=== PATIENT | female | born 1990 | race Caucasian/White ===

== ENCOUNTER 2019-01-08 05:35 | Emergency (ER) | payer OTHER, SELFPAY ==
[2019-01-08 05:35] VITALS: BP 142/91; PULSE 73; RESP 16; TEMP 36.5; O2SAT 96; BMI 29.7
[2019-01-08] MEDS: Ondansetron 4 MG/2 ML Vial IV (05:53)
[2019-01-08] MEDS: Meclizine HCl 25 MG Tablet PO (05:53)
[2019-01-08 06:11] LABS: Bedside Glucose 101 mg/dL (70-110)
[2019-01-08 06:16] LABS: Internal QC Validated? YES +Cl - CLEAR BKGD; Pregnancy, Urine Negative Negative
--- NOTE | 2019-01-08 06:29 | ED.DCSUM_ITS ---
- ER Visit Summary Date of Service: 01/08/19 Chief Complaint: Dizziness and nausea History of Present Illness: The patient is a 28 F who reports nausea and dry heaving since last night. She has not actually had any vomiting. She denies diarrhea. She denies any pain. She also complains of feeling dizzy. She describes this as a sensation of the room spinning. She denies recent URI-like illness. No otalgia. No tinnitus. Physical Examination: Afebrile vitals are normal No distress resting comfortably Heart regular rate and rhythm Lungs are clear Abdomen soft nontender Alert No focal or lateralizing neurological deficits no ataxia Test Results: GGT normal. negative. Emergency Department Course and Treatment: Patient was given Zofran and meclizine here. On reevaluation her symptoms are improved but not resolved. She was given prescriptions for Zofran and meclizine. I suspect her symptoms are related to vertigo. Given her benign appearance here benign exam I do feel she can be discharged to follow-up as an outpatient as needed. Treatment Plan: [] Disposition: Discharge Impression: Vertigo This note was generated with [employer] dictation software. It may contain incorrect words, spelling, and punctuation that were not noted in review of the chart prior to signing ED Disposition - Plan for ED Patient: Referrals: Jose Desai MD [Primary Care Provider] -
--- NOTE | 2019-01-08 06:29 | ED.DEP ---
ED Disposition - Plan for ED Patient: Instructions: ED Vertigo Unspecified Prescriptions: Ondansetron [Zofran Odt] 4 mg PO Q8H PRN PRN #10 tab PRN Reason: Nausea Meclizine HCl [Antivert] 25 mg PO 4X/DAY PRN PRN #20 tab PRN Reason: Dizziness Referrals: Jose Desai MD [Primary Care Provider] -
[2019-01-08 06:53] VITALS: BP 107/54; PULSE 72; RESP 16; O2SAT 100
--- NOTE | 2019-01-08 06:53 | ED.RN ---
THIS NURSE REVIEWED D/C INSTRUCTIONS WITH PT. PT VERBALIZED UNDERSTANDING OF INSTRUCTIONS. IV D/C. IV CATHETER INTACT. PT TOLERATED WELL. PT DENIES FURTHER NEEDS OR QUESTIONS AT THIS TIME.
== END 2019-01-08 06:54 | disposition home or self-care (01) ==
LOC: ED 05:54
PROVIDERS: Emergency Provider Emergency Medicine
DX: R42 Dizziness and giddiness (principal); R11.0 Nausea
CPT/HCPCS: 81025; 82962; 96374; 99283; A4216; J2405

== ENCOUNTER 2019-02-26 09:58 | Emergency (ER) | payer OTHER, SELFPAY ==
[2019-02-26 09:59] VITALS: BP 132/82; PULSE 94; RESP 13; TEMP 36.1; O2SAT 98; BMI 29.6
--- NOTE | 2019-02-26 10:19 | ED.DCSUM_ITS ---
- ER Visit Summary Date of Service: 02/26/19 Chief Complaint: Abdominal pain and diarrhea History of Present Illness: The patient is a 28 F who presents with abdominal pain diarrhea that began last night after eating dinner. Patient states the pain waxes and wanes. Patient states the pain is over the lower abdomen. Patient describes the pain is sharp and cramping. Patient admits to some nausea but denies any vomiting. She states she has been having diarrhea which is watery. Patient states today she noted some blood in her stools. Patient denies any dysuria. Patient states she is currently on her menstrual cycle. Physical Examination: Vital signs are stable. Patient is afebrile. Patient is in no acute distress. Oromucosa is pink and moist. Neck is supple. Trachea is midline. There is no JVD noted. Heart was regular rate and rhythm. Lungs are clear and equal bilateral. Abdomen is soft. There is diffuse tenderness. There is no rebound or guarding noted. Rectal exam showed good sphincter tone. There was some blood in the perirectal area due to the patient's vaginal bleeding. There is brown stool. There are no masses palpated. Cranial nerves II through XII are intact. There are no focal motor or sensory deficits noted. Test Results: CBC and conference of metabolic profile within normal limits. Serum hCG was negative. Urinalysis shows occult blood of 250 with 25-50 red blood cells. Stool with Hemoccult positive. However, this may be contaminated due to the blood in the perirectal area. Emergency Department Course and Treatment: Patient was given IV fluids, morphine, and Zofran. Patient felt better on reevaluation. Patient was given a prescription for Zofran. Patient was instructed to start with a liquid diet and advance to a bland and then regular diet as she starts to feel better. Patient understood and was agreeable with the plan. All questions were answered. Disposition: Discharge home Impression: 1. Abdominal pain 2. Diarrhea This note was generated with [employer] dictation software. It may contain incorrect words, spelling, and punctuation that were not noted in review of the chart prior to signing ED Disposition - Plan for ED Patient: Disposition: Home or Assisted Living Diagnosis: Abdominal pain, Diarrhea Instructions: ED Gastroenteritis Vs Food Poison Prescriptions: Ondansetron [Zofran Odt] 4 mg PO Q8H PRN PRN #10 tab PRN Reason: Nausea Referrals: Jose Desai MD [Primary Care Provider] - 5-7 Days
[2019-02-26] MEDS: Ondansetron 4 MG/2 ML Vial IV (10:33)
[2019-02-26] MEDS: 0.9% Normal Saline 1,000 ML 1000 ML IV (10:33)
[2019-02-26 10:45] LABS: Bacteria 0 SEEN /hpf (None Seen); Mucous, Urine 0 SEEN /hpf (<or=2+)
[2019-02-26 10:53] LABS: Absolute Lymphocyte Count 2.54 X10^3/ul (0.83-4.51); Absolute Neutrophil Count 6.9 X10^3/uL (2.0-7.7); Basophil# 0.04 X10^3/uL; Basophil% 0.4 % (0-1); Eosinophil# 0.15 X10^3/uL; Eosinophils% 1.5 % (0-5); Hematocrit 42.2 % (37-47); Hemoglobin 14.5 g/dl (12.0-15.0); Internal QC Validated? YES +Cl - CLEAR BKGD; Lymphocyte # 2.54 X10^3/ul (4.0); Lymphocyte % 24.8 % (19-41); Mean Corp Hgb Conc 34.4 g/gl (32-36); Mean Corpuscular Hgb 29.1 pg (27.0-32.0); Mean Corpuscular Volume 84.6 fL (81-99); Mean Platelet Vol. 10.2 fl (6.2-12.0); Monocyte# 0.57 X10^3/uL; Monocyte% 5.6 % (0-10); Neutrophil # 6.94 X10^3/uL (2.7-7.7); Neutrophil % 67.5 % (47-70); Platelet Count 324 K/mm3 (150-450); Pregnancy, Serum, hCG Quali. NEGATIVE Negative; RBC Distribution Width CV 12.5 % (11.6-14.6); RBC Distribution Width SD 37.6 fl (35.1-43.9); Red Blood Count 4.99 M/mm3 (4.2-5.4); White Blood Count 10.3 K/mm3 (4.4-11.0)
[2019-02-26 10:53] LABS: Color, Urine Amber (Yellow); Glucose, Dipstick Normal (Normal); Ketone-Dipstick Negative (Negative); Leukocyte Esterase-Dipstick 25 /ul (Negative); Nitrite-Dipstick Negative (Negative); Occult Blood-Urine 250 /ul (Negative); Protein-Dipstick 15 mg/dl (Negative); Specific Gravity, Urine 1.015 (1.002-1.030); Urine Bilirubin Dipstick Negative (Negative); Urine Clarity Sl. Cloudy (Clear); Urine Urobilinogen Normal (Normal)
[2019-02-26 10:54] LABS: POSITIVE COUNT NO; POSITIVE DIFFERENTIAL NO; POSITIVE MORPHOLOGY NO
[2019-02-26 11:01] LABS: Red Blood Cells-Urine 25-50 SEEN /hpf (0-5); Squamous Epithelial Cells - UA 0-5 SEEN /hpf (5-10); White Blood Cells 0-5 SEEN /hpf (0-5)
[2019-02-26 11:02] LABS: ALB/GLOB Ratio 0.9 RATIO (0.9-2.4); AST(SGOT) 24 U/L (15-37); Alanine Aminotransfer ALT/SGPT 31 U/L (13-56); Albumin, Serum 3.8 g/dL (3.2-5.0); Alkaline Phosphatase 77 U/L (45-117); Anion Gap 3 (5-15); BUN 8 mg/dL (7-18); BUN/Creat Ratio 12.9 RATIO (10-20); Chloride 106 mmol/L (98-107); Creatinine, Serum 0.62 mg/dL (0.55-1.02); EST Glomerular Filtration Rate 120 mL/min (>60); Est Glom Filt Rate - Afr Amer 145 mL/min (>60); Globulin 4.1 g/dL (2.2-4.2); Glucose 88 mg/dL (74-106); Lipase 101 U/L (73-393); Potassium 3.8 mmol/L (3.5-5.1); Protein, Total 7.9 g/dL (6.4-8.2); Sodium Level 137 mmol/L (136-145)
[2019-02-26 12:19] VITALS: BP 119/77; PULSE 67; RESP 17; O2SAT 99
--- NOTE | 2019-02-26 12:19 | ED.RN ---
IV DC'ED, CATHETER INTACT, SMALL GAUZE DRESSING PLACED. DISCHARGE INSTRUCTIONS GIVEN TO AND REVIEWED WITH PATIENT, PATIENT DENIES QUESTIONS OR CONCERNS AND VOICES UNDERSTANDING OF DISCHARGE INSTRUCTIONS. PT AMBULATES OUT OF ROOM WITHOUT DIFFICULTY.
== END 2019-02-26 12:20 | disposition home or self-care (01) ==
PROVIDERS: Emergency Provider Emergency Medicine
DX: R10.9 Unspecified abdominal pain (principal); R19.7 Diarrhea, unspecified; R11.0 Nausea; M54.2 Cervicalgia
CPT/HCPCS: 80053; 81001; 82274; 83690; 84703; 85025; 96361; 96374; 96375; 99283; J7030; J2405

== ENCOUNTER 2020-06-05 17:25 | Outpatient (CLI) | payer OTHER, SELFPAY ==
[2020-06-05 17:46] VITALS: BP 127/65; PULSE 86; BMI 37.4
--- NOTE | 2020-06-06 22:21 | OB.TRI.PN ---
Progress Notes Date of Service: 06/05/20 Progress Note: 30 year old at 37w1d. Presented from office with deceleration auscultated via doppler. No contractions, vaginal bleeding, or leakage of fluid. O: FHT: 120, moderate variability, accels, variable deceleration TOCO: None Reactive NST A: Full term Reactive NST P: 1) D/C home 2) kick counts reviewed
== END 2020-06-05 19:15 | disposition home or self-care (01) ==
LOC: WPOUT 17:39 → OBT 17:40
PROVIDERS: Visit Provider Advanced Practice Midwife
DX: O36.8330 Maternal care for abnormalities of the fetal heart rate or rhythm, third trimester, not applicable or unspecified (principal); Z3A.37 37 weeks gestation of pregnancy
CPT/HCPCS: 59025; 59050; 99218; G0378

== ENCOUNTER → 2020-06-14 17:43 | Outpatient (CLI) | payer OTHER, SELFPAY ==
[2020-06-05 17:46] VITALS: BMI 37.4
== END ==
PROVIDERS: Referring Provider Obstetrics & Gynecology; Visit Provider Obstetrics & Gynecology
DX: Z11.59 Encounter for screening for other viral diseases (principal)
CPT/HCPCS: 87635; C9803; U0003

== ENCOUNTER 2020-06-20 07:10 | Inpatient (IN) | payer OTHER, SELFPAY ==
[2020-06-20] VITALS (71 sets, daily range): BP systolic 90–147; BP diastolic 53–95; PULSE 67–179; RESP 16; TEMP 36.2–37.3; O2SAT 80–100; BMI 38.4
[2020-06-20] MEDS: Lactated Ringers 1,000 ML 50 ML IV (07:40)
[2020-06-20] MEDS: Oxytocin 30 units/NS 500 ml 30 UNITS/500 ML IV.SOLN IV (07:55)
[2020-06-20 08:33] LABS: Absolute Lymphocyte Count 2.03 X10^3/uL (0.83-4.51); Basophil# 0.04 X10^3/uL; Basophil% 0.4 % (0-1); Eosinophil# 0.08 X10^3/uL; Eosinophils% 0.8 % (0-5); Hematocrit 35.1 % (37-47); Hemoglobin 11.9 g/dL (12.0-15.0); Lymphocyte # 2.03 X10^3/ul (4.0); Lymphocyte % 20.3 % (19-41); Mean Corp Hgb Conc 33.9 g/dL (32-36); Mean Corpuscular Hgb 30.3 pg (27.0-32.0); Mean Corpuscular Volume 89.3 fL (81-99); Mean Platelet Vol. 10.6 fl (6.2-12.0); Monocyte# 0.72 X10^3/uL; Monocyte% 7.2 % (0-10); NRBC Flagged by Analyzer 0 % (0-5); Neutrophil # 7.03 X10^3/uL (2.7-7.7); Neutrophil % 70.2 % (47-70); Platelet Count 174 K/mm3 (150-450); RBC Distribution Width CV 14.4 % (11.6-14.6); RBC Distribution Width SD 47.1 fl (35.1-43.9); Red Blood Count 3.93 M/mm3 (4.2-5.4)
[2020-06-20] MEDS: Acetaminophen 325 MG Tablet PO (09:21)
--- NOTE | 2020-06-20 13:10 | HP.PCM_ITS ---
History Date of Admission: 05/06/17 Final MELCHOR: 06/27/20 Final MELCHOR Source: LMP Gestational age: 39 Weeks and 0 Days History of this : This is a 30 year-old, G 2, P 1001, at 39 2/7 weeks gestational age with a EDC of 06/25/2020 resents for an induction of labor. Some irregular contractions over the weekend. She denies any gross vaginal bleeding or leaking of fluid. She is had good movement. has been uncomplicated to date. Has a history of one previous vaginal delivery at 40 weeks 3 days of an 8 pound 7 ounce without complications. He was induced for preeclampsia and was on magnesium with that . She has a medical history significant for heavy menses, urinary tract infections, and she has a surgical history of a tonsillectomy. Allergies No Known Allergies Allergy (Verified 06/20/20 08:25) Home Medications: Home Medications Aspirin [Aspirin, Baby] 06/05/20 Prenatabs FA 06/05/20 Prilosec Otc 06/05/20 Smoking Status: Never smoker Alcohol: None Substance Use Type: Alcohol Number of Fetus(es): 1 History Past Pregnancies: Past Pregnancies Delivery Date Name GA/ Weeks Outcome Route Wt Sex Labor Length Anesthesia Delivery Location Provider FOB Expected Infant Delivery Method: Spontaneous Vaginal Review of Systems Constitutional: Denies: Chills, Fever Eyes: Denies: Blurred vision Cardiovascular: Denies: Chest Pain Respiratory: Denies: Cough, Shortness of Breath Neurological: Denies: Blurred vision, Slurred speech Physical Exam Vitals: Vital Signs Temp Pulse BP 97.9 F 75 139/66 H 06/20/20 10:41 06/20/20 13:04 06/20/20 13:04 General: Alert, Cooperative, No apparent distress Cardiovascular: Regular rate Lungs: Normal air movement Abdomen: Soft, Non Tender, Non-Distended, Gravid, Appropriate for Gestational Age Extremities:: Other - edema 2+ Neurological: Neuro grossly intact. Negative for: Slurred Speech [employer]: Normal external genitalia Estimated gestational size: Appropriate for gestational size Presentation: Cephalic Cervix Dilation (cm): 1 Station: -3 Effacement (%): 50 Assessment/Plan This is a 30 year-old, avid 2 para 1 at 39-2/7 weeks gestation for elective induction. Risk benefits alternatives to elective induction been discussed with patient, her questions were answered to her satisfaction she desires to proceed. We will proceed with Pitocin, Daniels and artificial rupture of membranes induction of labor. Estimated weight is less than 4500 g clinically, pelvis clinically adequate to expect vaginal delivery. Procedure note: At approximately 8 AM a Daniels catheter was placed over stylette through the internal cervical loss in the usual sterile fashion and inflated to 30 cc. Placement over the internal loss was confirmed. Patient and fetus tolerated the procedure well.
[2020-06-20] MEDS: Lactated Ringers 500 ML 999 ML IV (14:20)
[2020-06-20] MEDS: fentaNYL-bupivacaine (epidural) 100 ML BAG EPIDURAL ×2 (15:16→19:56)
[2020-06-20] MEDS: Terbutaline 1 MG/ML Vial 0.25 MG SC (17:10)
--- NOTE | 2020-06-20 17:13 | PCM.PN.BLA ---
Progress Note Patient getting uncomfortable w/ contractions. Nursing checked patient and no presenting part. earlier I checked patient and felt hand over what was assessed as skull. However, now, obvious foot presentation. Brief US confirms breech. pitocin off. Terbutaline given x1. D/w her option of attempt of ECV. If unsuccessful or fetus does not tolerate will be for primary c/s. R/B/A to this reviewed, questions answered and she desires to proceed. STROKE Vital Signs/Narrative: Vital Signs Pulse BP Pulse Ox 06/20/20 17:07 67 99 06/20/20 16:57 82 131/76 H 06/20/20 16:39 78 98 06/20/20 16:34 78 139/65 H 97 06/20/20 15:45 76 129/77 H 06/20/20 15:22 81 132/73 H 06/20/20 15:20 85 97 06/20/20 15:17 79 124/63 H 06/20/20 15:15 82 97 06/20/20 15:12 132/71 H 06/20/20 15:08 93 96 06/20/20 15:07 82 127/71 H 06/20/20 15:03 77 97 06/20/20 15:02 83 140/76 H 06/20/20 14:59 70 140/75 H 06/20/20 14:58 97 06/20/20 14:53 83 98 06/20/20 14:52 83 141/95 H 06/20/20 14:48 81 141/95 H 99 06/20/20 14:43 82 99 06/20/20 14:42 88 145/93 H 80 06/20/20 14:38 84 97 06/20/20 14:37 83 135/82 H 06/20/20 14:33 81 96 06/20/20 14:32 79 147/84 H 06/20/20 14:28 84 96 06/20/20 14:27 75 136/81 H 06/20/20 14:23 80 97 06/20/20 14:22 73 132/79 H 06/20/20 14:18 70 98 06/20/20 14:17 179 H 83
--- NOTE | 2020-06-20 17:44 | PCM.PN.BLA ---
Progress Note Procedure note: Risk benefits alternatives to trial of external cephalic version versus primary section were discussed with the patient, her questions were answered to her satisfaction she desired to proceed. With the assistance of Amber Graham CNM ultrasound guidance, an external cephalic version was done. The fetus was noted to be breech with a right maternal lie and the head in the left upper quadrant of the fundus. We made 2 attempts and ultrasound confirmed that the fetus was vertex. We confirm heart tones were above 100. Then on the next attempt we were able to convert the fetus to text. While Amber Graham CNM pressure on the maternal vertex and fundus, I was able to perform artificial rupture membranes with return of moderate amount of clear fluid. The patient was found to be 5 to 6 cm, 70% effaced and after the fluid was leaked out the vertex was confirmed to be against the cervix and -3 station. Will reinitiate Pitocin. Epidural is adequate. Expectant management for vaginal delivery. Fetus and patient tolerated the procedure well. STROKE Vital Signs/Narrative: Vital Signs Temp Pulse Resp BP Pulse Ox 06/20/20 17:43 93 125/63 H 06/20/20 17:42 98 06/20/20 17:30 87 97 06/20/20 17:22 93 98 06/20/20 17:19 97.2 F L 87 16 131/76 H 98 06/20/20 17:17 87 98 06/20/20 17:12 82 98 06/20/20 17:07 67 99 06/20/20 16:57 82 131/76 H 06/20/20 16:39 78 98 06/20/20 16:34 78 139/65 H 97 06/20/20 15:45 76 129/77 H 06/20/20 15:22 81 132/73 H 06/20/20 15:20 85 97 06/20/20 15:17 79 124/63 H 06/20/20 15:15 82 97 06/20/20 15:12 132/71 H 06/20/20 15:08 93 96 06/20/20 15:07 82 127/71 H 06/20/20 15:03 77 97 06/20/20 15:02 83 140/76 H 06/20/20 14:59 70 140/75 H 06/20/20 14:58 97 06/20/20 14:53 83 98 06/20/20 14:52 83 141/95 H 06/20/20 14:48 81 141/95 H 99 06/20/20 14:43 82 99 06/20/20 14:42 88 145/93 H 80 06/20/20 14:38 84 97 06/20/20 14:37 83 135/82 H 06/20/20 14:33 81 96 06/20/20 14:32 79 147/84 H 06/20/20 14:28 84 96 06/20/20 14:27 75 136/81 H 06/20/20 14:23 80 97 06/20/20 14:22 73 132/79 H 06/20/20 14:18 70 98 06/20/20 14:17 179 H 83
[2020-06-20] MEDS: Lactated Ringers 1,000 ML 999 ML IV (18:23)
[2020-06-20] MEDS: Mag Hydrox/Al Hydrox/Simeth 30 ML UDC PO (22:12)
[2020-06-20] MEDS: Lactated Ringers 1,000 ML 200 ML IV (22:15)
[2020-06-21] VITALS (23 sets, daily range): BP systolic 117–140; BP diastolic 54–78; PULSE 74–108; RESP 14–16; TEMP 36.2–37.2; O2SAT 95–96
[2020-06-21] MEDS: Ondansetron 4 MG/2 ML Vial IV (00:09)
--- NOTE | 2020-06-21 00:58 | NURSING ---
RN removed pt catheter at this time as pt states she pushed the moreno catheter out with last delivery.
[2020-06-21] MEDS: Oxytocin 30 units/NS 500 ml 30 UNITS/500 ML IV.SOLN 334 UNITS IV (01:12)
[2020-06-21] MEDS: miSOPROStol 200 MCG Tablet 800 MCG RECTAL (01:29)
--- NOTE | 2020-06-21 01:44 | PCM.OPRPT ---
Vaginal Delivery Maternal Presentation: Elective Induction Method of Induction: Pitocin, Daniels Bulb, Amniotomy Amniotic Membrane Rupture Type: Artificial Amniotic Fluid Description: Clear Final MELCHOR: 06/27/20 Final MELCHOR Source: US <20 weeks Gestational age: 39 Weeks and 1 Days Date of Procedure: 06/21/20 Pre-Operative Diagnosis: labor Post-Operative Diagnosis: same Surgery/ Procedure Performed: Spontaneous Vaginal Delivery Type of Anesthesia: Epidural Description of Procedure: A vigorous female infant was delivered CAROLYN over a second-degree perineal laceration. The remainder the infant was delivered with maternal pushing and gentle traction only in less than 15 seconds. The Pitocin infusion was initiated for active management of the third stage. The cord was clamped and cut after 1 minute. The infant was attended to by the waiting nursing staff. The placenta was delivered spontaneously and intact. The cervix and vagina were intact. The second-degree perineal laceration was repaired with 3-0 Vicryl suture in a running standard fashion. Some mild intermittent atony that responded to fundal massage. I did explore the uterus x1. Clots were removed but no retained products. I then did a brief ultrasound which confirmed an empty uterus with a bright white endometrial stripe. Cytotec 800 mcg rectally was given. Uterus remained firm. Sponge and needle counts were correct. A vaginal sweep was completed by me. Presentation: CAROLYN Placental Delivery Description: Spontaneous Placenta Disposition: [facility] Cord Vessel Description: 3 Vessels Cord Entanglement: None Drain: - - none Estimated Blood Loss: 600 A gender: Female - Gretel (1 minute): 8 (5 minute): 9 Episiotomy Description: None Laceration: 2nd degree - perineal Medications given after delivery: IV Pitocin, - - cytotec 800 mcg rectally Complications: None
[2020-06-21] MEDS: Methylergonovine 0.2 MG/ML Ampul IM (01:57)
[2020-06-21] MEDS: Cefazolin 2 GM in 0.9% Normal Saline 100 ML IV (02:13)
[2020-06-21] MEDS: 0.9% Saline Lock 10 ML Syringe IV (03:42)
[2020-06-21] MEDS: Acetaminophen 500 MG Tablet 1000 MG PO ×3 (04:40→21:43)
[2020-06-21] MEDS: Naproxen 250 MG Tablet 500 MG PO ×2 (08:28→18:24)
[2020-06-21] MEDS: Senna/Docusate Sodium 1 Tablet PO (08:28)
[2020-06-21 10:24] LABS: Mean Corp Hgb Conc 34.3 g/dL (32-36); Mean Corpuscular Hgb 30.5 pg (27.0-32.0); Mean Corpuscular Volume 88.8 fL (81-99); Mean Platelet Vol. 10.7 fl (6.2-12.0); Platelet Count 160 K/mm3 (150-450); RBC Distribution Width CV 14.3 % (11.6-14.6); RBC Distribution Width SD 45.6 fl (35.1-43.9); Red Blood Count 3.94 M/mm3 (4.2-5.4); White Blood Count 14.8 K/mm3 (4.4-11.0)
[2020-06-21] MEDS: oxyCODONE 5 MG Tablet PO (13:12)
--- NOTE | 2020-06-21 16:22 | NURSING ---
reviewed student nurses charting that is used for educational and learning procedures.
--- NOTE | 2020-06-21 16:24 | NURSING ---
reviewed student nurse charting that is used for educational and learning purposes.
[2020-06-22 02:29] VITALS: BP 123/74; PULSE 75
[2020-06-22 02:30] VITALS: BP 123/74; PULSE 75; RESP 16; TEMP 36.6
[2020-06-22] MEDS: Naproxen 250 MG Tablet 500 MG PO (05:20)
[2020-06-22 08:26] VITALS: BP 129/62; PULSE 74; RESP 16; TEMP 36.7; O2SAT 97
[2020-06-22 08:30] VITALS: BP 129/62; PULSE 74; PULSE 76; O2SAT 97
[2020-06-22] MEDS: Acetaminophen 500 MG Tablet 1000 MG PO (08:32)
--- NOTE | 2020-06-22 08:40 | PCM.PN.OB ---
Subjective: Patient seen at bedside. infant during visit. Stated feeling good, no pain at this time. Voiding and ambulating without difficulty. Lochia is mild. Requesting discharge home today. - Physical Exam Vitals/I&O's: Vital Signs Temp Pulse Resp BP Pulse Ox 98.1 F 76 16 129/62 H 97 06/22/20 08:26 06/22/20 08:30 06/22/20 08:26 06/22/20 08:30 06/22/20 08:30 Oxygen Delivery Method Room Air Weight: 238 lb Body Mass Index (BMI) 38.4 Finger Stick Blood Glucose 101 Intake and Output for Last 24 Hours 06/20/20 06/21/20 06/22/20 23:59 23:59 23:59 Intake Total 2905.51 / 2905.51 1173.60 / 1173.60 Output Total 500 / 925 1850 / 1850 Balance 2405.51 / 1980.51 -676.40 / -676.40 General: Oriented x3, Cooperative HEENT: Atraumatic Oral: Moist Mucosa Lungs: Normal air movement Cardiovascular: Regular rate Skin: No rashes Neurological: Cranial nerves II-XII grossly intact Psych/Mental Status: Normal Affect Laboratory Results 06/21/20 10:10: WBC 14.8 H, RBC 3.94 L, Hgb 12.0, Hct 35.0 L, MCV 88.8, MCH 30.5, MCHC 34.3, RDW Std Deviation 45.6 H, RDW Coeff of Sujatha 14.3, Plt Count 160, MPV 10.7 Current Medications Acetaminophen (Tylenol) 1,000 mg PO Q8H PRN PRN PRN Reason: Pain Score 1-3/10 Last Admin: 06/22/20 08:32 Dose: 1,000 mg Documented by: Bisacodyl (Dulcolax) 10 mg RECTAL UD PRN PRN Reason: If no BM Dibucaine (Dibucaine) 1 applic TOPICAL TID PRN PRN; Protocol PRN Reason: Discomfort Hydrocortisone (Hytone) 1 applic TOPICAL TID PRN PRN; Protocol PRN Reason: Discomfort Methylergonovine Maleate (Methergine) 0.2 mg IM X1 PRN PRN Reason: Excess bleeding/uterine atony Last Admin: 09/09/20 01:57 Dose: 0.2 mg Documented by: Naproxen (Naprosyn) 500 mg PO Q8H PRN PRN PRN Reason: Pain Score 1-3/10 Last Admin: 06/22/20 05:20 Dose: 500 mg Documented by: Ondansetron HCl (Zofran) 4 mg IV Q4H PRN PRN PRN Reason: Nausea Prochlorperazine Edisylate (Compazine Iv) 10 mg IV Q6H PRN PRN PRN Reason: NAUSEA/VOMITING Senna/Docusate Sodium (Senokot-S, Gloria-Colace) 1 - 2 tablet PO DAILY PRN PRN PRN Reason: Constipation Last Admin: 06/21/20 08:28 Dose: 2 tablet Documented by: Simethicone (Mylicon) 80 mg PO PCHS PRN PRN Reason: Indigestion/Stomach pain Sodium Chloride () 5 - 15 ml IV UD PRN PRN Reason: SALINE FLUSH Last Admin: 06/21/20 03:42 Dose: 10 ml Documented by: Medical Necessity - Tobacco Use Smoking Status: Never smoker Assessment/Plan A/P PPD #1 Routine care Pain controlled Discharge home
--- NOTE | 2020-06-22 08:43 | DCINST_ITS ---
Discharge Diet: No Restrictions Discharge Activity: Return to Normal Activity Additional Instructions: If you experience any of the following, contact your healthcare provider. * Bleeding that soaks a pad every hour for 2 hours * Fever 100.4 or higher * Unrelieved incision or abdominal pain * Swelling, redness, discharge or bleeding from your incision or episiotomy site * Your incision begins to separate * Problems urinating (including inability to urinate or burning while urinating). * Visual changes * Severe headache * Flu-like symptoms * Pain or redness in one of both of your breasts * Pain, warmth, tenderness or swelling in your legs, especially the calf area * Frequent nausea and vomiting * Symptoms of depression or anxiety If you experience any of the following, call 911 or go to the nearest Emergency Room. * Chest pain * Problems breathing * Seizure activity * Partial or complete paralysis of a body part, slurred speech, weakness or drooping of the face, or a sudden inability to walk or hold your balance Allergies/Adverse Reactions: Allergies No Known Allergies Allergy (Verified 06/20/20 08:25) Medications to take at Discharge Aspirin [Aspirin, Baby] 06/05/20 Prenatabs FA 06/05/20 Prilosec Otc 06/05/20 When: 2 weeks virtual visit/ 6 weeks in office Primary Care Physician: Jose Desai MD [Primary Care Provider] - Test Results: Test results from this visit will be discussed in further detail at your follow- up appointment, if applicable.
--- NOTE | 2020-06-22 08:43 | PCM.DCVAG ---
Discharge Diet: No Restrictions Discharge Activity: Return to Normal Activity Additional Instructions: If you experience any of the following, contact your healthcare provider. Bleeding that soaks a pad every hour for 2 hours Fever 100.4 or higher Unrelieved incision or abdominal pain Swelling, redness, discharge or bleeding from your incision or episiotomy site Your incision begins to separate Problems urinating (including inability to urinate or burning while urinating). Visual changes Severe headache Flu-like symptoms Pain or redness in one of both of your breasts Pain, warmth, tenderness or swelling in your legs, especially the calf area Frequent nausea and vomiting Symptoms of depression or anxiety If you experience any of the following, call 911 or go to the nearest Emergency Room. Chest pain Problems breathing Seizure activity Partial or complete paralysis of a body part, slurred speech, weakness or drooping of the face, or a sudden inability to walk or hold your balance Allergies/Adverse Reactions: Allergies No Known Allergies Allergy (Verified 06/20/20 08:25) Medications to take at Discharge Aspirin [Aspirin, Baby] 06/05/20 Prenatabs FA 06/05/20 Prilosec Otc 06/05/20 When: 2 weeks virtual visit/ 6 weeks in office Primary Care Physician: Jose Desai MD [Primary Care Provider] - Test Results: Test results from this visit will be discussed in further detail at your follow-up appointment, if applicable.
== END 2020-06-22 11:25 | disposition home or self-care (01) | DRG 807 ==
PROVIDERS: Admitting Provider Obstetrics & Gynecology; Referring Provider Obstetrics & Gynecology; Visit Provider Obstetrics & Gynecology
DX: O75.9 Complication of labor and delivery, unspecified (principal); Z37.0 Single live birth; O70.1 Second degree perineal laceration during delivery; Z3A.39 39 weeks gestation of pregnancy
CPT/HCPCS: 59025; 59050; 85025; 85027; 86850; 86900; 86901; 99218; J7120; A4216; G0378; J2405

== ENCOUNTER 2020-06-26 09:49 | Outpatient (CLI) | payer OTHER, SELFPAY ==
[2020-06-20 07:50] VITALS: BMI 38.4
== END 2020-06-26 10:24 | disposition home or self-care (01) ==
LOC: TELEHEALTH 06-27 11:36
PROVIDERS: Referring Provider Registered Nurse Lactation Consultant; Visit Provider Registered Nurse Lactation Consultant
DX: R63.3 Feeding difficulties (principal)
CPT/HCPCS: 96158; 96159

== ENCOUNTER → 2020-07-19 20:15 | Outpatient (CLI) | payer OTHER, SELFPAY ==
[2020-06-20 07:50] VITALS: BMI 38.4
== END ==
PROVIDERS: Referring Provider Obstetrics & Gynecology; Visit Provider Obstetrics & Gynecology
DX: R63.3 Feeding difficulties (principal)
CPT/HCPCS: 96158

== ENCOUNTER → 2023-04-14 | Outpatient (CLI) | payer OTHER, SELFPAY ==
[2023-04-14 15:12] LABS: Absolute Lymphocyte Count 2.91 X10^3/uL (0.83-4.51); Absolute Neutrophil Count 5.5 X10^3/uL (2.0-7.7); Basophil# 0.06 X10^3/uL; Basophil% 0.7 % (0-1); Eosinophil# 0.11 X10^3/uL; Eosinophils% 1.2 % (0-5); Hematocrit 39.7 % (37-47); Hemoglobin 13.2 g/dL (12.0-15.0); Lymphocyte # 2.91 X10^3/ul (0.83-4.51); Mean Corp Hgb Conc 33.2 g/dL (32-36); Mean Corpuscular Volume 87.3 fL (81-99); Mean Platelet Vol. 10.9 fl (6.2-12.0); Monocyte# 0.46 X10^3/uL; Monocyte% 5.1 % (0-10); NRBC Flagged by Analyzer 0 % (0-5); Neutrophil # 5.52 X10^3/uL (2.7-7.7); Neutrophil % 60.8 % (47-70); Platelet Count 335 K/mm3 (150-450); RBC Distribution Width CV 12.2 % (11.6-14.6); RBC Distribution Width SD 38.9 fl (35.1-43.9); Red Blood Count 4.55 M/mm3 (4.2-5.4); White Blood Count 9.1 K/mm3 (4.4-11.0)
[2023-04-14 16:03] LABS: ALB/GLOB Ratio 0.9 RATIO (0.9-2.4); AST(SGOT) 29 U/L (15-37); Alanine Aminotransfer ALT/SGPT 36 U/L (13-56); Albumin, Serum 3.5 g/dL (3.2-5.0); Alkaline Phosphatase 64 U/L (45-117); Anion Gap 6 (5-15); BUN 8 mg/dL (7-18); BUN/Creat Ratio 12.9 RATIO (10-20); Chloride 108 mmol/L (98-107); Creatinine, Serum 0.62 mg/dL (0.55-1.02); EST Glomerular Filtration Rate 117 mL/min (>60); Est Glom Filt Rate - Afr Amer 141 mL/min (>60); Globulin 4.1 g/dL (2.2-4.2); Glucose 73 mg/dL (74-106); Potassium 3.7 mmol/L (3.5-5.1); Protein, Total 7.6 g/dL (6.4-8.2); Sodium Level 135 mmol/L (136-145)
[2023-04-18 21:07] LABS: Almond <0.10 kU/L (Class 0); Barley, Whole Grain <0.10 kU/L (Class 0); Brazil Nut <0.10 kU/L (Class 0); Cashew <0.10 kU/L (Class 0); Crab <0.10 kU/L (Class 0); Egg, White <0.10 kU/L (Class 0); Egg, Yolk <0.10 kU/L (Class 0); Garlic <0.10 kU/L (Class 0); Gluten <0.10 kU/L (Class 0); Hazelnut/Filbert <0.10 kU/L (Class 0); Onion <0.10 kU/L (Class 0); Pecan <0.10 kU/L (Class 0); Rice <0.10 kU/L (Class 0); Soybean <0.10 kU/L (Class 0); Strawberry <0.10 kU/L (Class 0); Tomato <0.10 kU/L (Class 0); Wheat <0.10 kU/L (Class 0); Yeast <0.10 kU/L (Class 0)
== END | disposition home or self-care (01) ==
PROVIDERS: PCP Family Medicine; Referring Provider Otolaryngology Otolaryngology/Facial Plastic Surgery; Visit Provider Otolaryngology Otolaryngology/Facial Plastic Surgery
DX: Z13.1 Encounter for screening for diabetes mellitus (principal); T78.40XA Allergy, unspecified, initial encounter
CPT/HCPCS: 36415; 80053; 85025; 86003

== ENCOUNTER 2023-05-01 12:39 | Outpatient (CLI) | payer OTHER, SELFPAY ==
[2023-05-01 15:53] LABS: Absolute Lymphocyte Count 2.61 X10^3/uL (0.83-4.51); Basophil# 0.06 X10^3/uL; Basophil% 0.7 % (0-1); Eosinophil# 0.11 X10^3/uL; Eosinophils% 1.3 % (0-5); Hematocrit 41.4 % (37-47); Hemoglobin 14.1 g/dL (12.0-15.0); Lymphocyte # 2.61 X10^3/ul (0.83-4.51); Lymphocyte % 31.6 % (19-41); Mean Corp Hgb Conc 34.1 g/dL (32-36); Mean Corpuscular Hgb 29.1 pg (27.0-32.0); Mean Corpuscular Volume 85.4 fL (81-99); Mean Platelet Vol. 10.7 fl (6.2-12.0); Monocyte# 0.46 X10^3/uL; Monocyte% 5.6 % (0-10); NRBC Flagged by Analyzer 0 % (0-5); Neutrophil # 4.99 X10^3/uL (2.7-7.7); Neutrophil % 60.4 % (47-70); Platelet Count 369 K/mm3 (150-450); RBC Distribution Width CV 12.2 % (11.6-14.6); RBC Distribution Width SD 37.8 fl (35.1-43.9); Red Blood Count 4.85 M/mm3 (4.2-5.4); White Blood Count 8.3 K/mm3 (4.4-11.0)
[2023-05-01 16:31] LABS: AST(SGOT) 22 U/L (15-37); Alanine Aminotransfer ALT/SGPT 34 U/L (13-56); Albumin, Serum 3.8 g/dL (3.2-5.0); Alkaline Phosphatase 72 U/L (45-117); Anion Gap 9 (5-15); BUN 9 mg/dL (7-18); BUN/Creat Ratio 14.9 RATIO (10-20); Calcium,Total 9.2 mg/dL (8.5-10.1); Chloride 105 mmol/L (98-107); Creatinine, Serum 0.61 mg/dL (0.55-1.02); EST Glomerular Filtration Rate 120 mL/min (>60); Est Glom Filt Rate - Afr Amer 146 mL/min (>60); Glucose 82 mg/dL (74-106); Potassium 3.9 mmol/L (3.5-5.1); Protein, Total 7.8 g/dL (6.4-8.2); Sodium Level 137 mmol/L (136-145); Thyroid Stim Hormone (TSH) 0.95 uIU/mL (0.358-3.74)
== END 2023-05-01 23:59 | disposition home or self-care (01) ==
LOC: MTLAB 12:40
PROVIDERS: PCP Family Medicine; Visit Provider Family Medicine
DX: Z00.00 Encounter for general adult medical examination without abnormal findings (principal); R03.0 Elevated blood-pressure reading, without diagnosis of hypertension
CPT/HCPCS: 36415; 80053; 84443; 85025